=== PATIENT | female | born 1960 | race Caucasian/White ===

== ENCOUNTER → 2019-10-15 | Outpatient (CLI) | payer OTHER ==
[2019-10-15 09:50] LABS: BASOPHILS ABSOLUTE AUTO 0.05 K/mm3 (0.00-0.23); BASOPHILS PERCENT AUTO 1 % (0-2); EOSINOPHILS PERCENT AUTO 3 % (0-6); Hematocrit 39.2 % (33.0-51.0); Hemoglobin 12.5 g/dL (11.5-16.0); IMMATURE GRAN ABSOLUTE AUTO 0.02 K/mm3 (0.00-0.10); IMMATURE GRAN PERCENT AUTO 0 % (0-1); LYMPHOCYTES ABSOLUTE AUTO 2.76 K/mm3 (0.84-5.20); LYMPHOCYTES PERCENT AUTO 40 % (21-46); MONOCYTES ABSOLUTE AUTO 0.58 K/mm3 (0.16-1.47); MONOCYTES PERCENT AUTO 8 % (4-13); Mean Corpuscular HGB 26.8 pg (26.0-34.0); Mean Corpuscular HGB Conc 31.9 g/dL (31.5-36.5); Mean Corpuscular Volume 84 fL (80-100); NEUTROPHILS ABSOLUTE AUTO 3.34 K/mm3 (1.96-9.15); NEUTROPHILS PERCENT AUTO 48 % (41-73); Platelet Count 368 K/mm3 (150-400); RDW Coefficient Variation 15.2 % (11.7-14.2); Red Blood Cell Count 4.67 M/mm3 (3.80-5.20); White Blood Cell Count 6.95 K/mm3 (4.00-11.30)
[2019-10-15 10:52] LABS: Alanine Aminotransfer (ALT/SGP 42 U/L (12-78); Albumin, Blood 4.1 g/dL (3.4-5.0); Albumin/Globulin Ratio 1.1 (0.8-1.8); Alk Phos 84 U/L (40-126); Anion Gap 13 mmol/L (6-16); Aspartate Aminotrans (AST/SGOT 29 U/L (12-37); Bilirubin, Total 0.6 mg/dL (0.1-1.0); Blood Urea Nitrogen 14 mg/dL (8-24); Bun/Creatinine Ratio 16.5 (12.0-20.0); CO2, Blood 25 mmol/L (21-32); Chloride, Blood 104 mmol/L (98-108); Creatinine, Blood 0.85 mg/dL (0.40-1.00); Globulin, Blood 3.8 g/dL (2.2-4.0); Glomerular Filtration Rate >60 (60-); Glucose, Blood 112 mg/dL (70-99); Potassium, Blood 3.2 mmol/L (3.5-5.5); Sodium, Blood 142 mmol/L (136-145); Thyroid Stimulating Hormone 1.532 uIU/mL (0.360-4.800); Total Protein, Blood 7.9 g/dL (6.4-8.2)
[2019-10-15 11:58] LABS: Microalb/Creat Ratio UR, Rand 5.254 mg/g (0.000-30.000); Microalbumin, Random Urine 7.25 mg/L (0.000-20.000)
== END | disposition home or self-care (01) ==
LOC: LAB EV 08:35 → LAB SHORT 08:35
PROVIDERS: Family Medicine
DX: E03.9 Hypothyroidism, unspecified (principal); E78.49 Other hyperlipidemia; I10 Essential (primary) hypertension; E11.9 Type 2 diabetes mellitus without complications
CPT/HCPCS: 36415; 80053; 82043; 82570; 83036; 84443; 85025

== ENCOUNTER → 2020-09-02 | Outpatient (CLI) | payer BC | END | disposition home or self-care (01) | LOC: LAB EV 13:55 → LAB SHORT 13:55 | DX: B34.9 Viral infection, unspecified (principal); Z20.828 Contact with and (suspected) exposure to other viral communicable diseases | CPT/HCPCS: U0003 ==

== ENCOUNTER 2020-11-24 11:32 | Day surgery (SDC) | payer BC ==
[~2020-11-24] VITALS: Ht 172.7 cm; Wt 92.6 kg
[~2020-11-24 11:32] MED LIST: ALLEGRA ALLERG180 MG PO; ATOR20 PO; CENTRUM SILVER1 EAC2 PO; CITA20 PO; EUTHYROX50 MCG PO; Estrace Vagin42.5 GM TOP; Flonase 0.05% N16 GM; GINKGO60 MG PO; LOSARTAN-HCTZ1 EACH PO; METF500 PO; METO100ER PO; METO5A PO; PANT40 PO; POTCHL20ER PO
--- NOTE | 2020-11-24 12:06 | NUR ---
Ambulatory in Day Surgery. History, Chart, Medications and Allergies reviewed before start of procedure. Lungs clear T/O to Auscultation. Patient confirms NPO status and agrees with scheduled surgery.
--- NOTE | 2020-11-24 17:25 | NUR ---
PT TRANSFERRED TO ROOM VIA OWN BED, A/O X 4, PLEASANT/COOPERATIVE, DENIES PAIN, DENIES N/V. PER SPINAL ANESTHESIA, PT IS ABLE TO WIGGLE TOES, HAS MODERATE SENSATION, DERMATOMES AT L3. POST OP VS COMMENCED AND STABLE. OP SITE WITH BULKY GAUZE DRESSING AND TESSIE, C/D/I. CRYOTHERAPY, PATRICIA, PAS IN PLACE.
[2020-11-25 04:28] LABS: BASOPHILS ABSOLUTE AUTO 0.02 K/mm3 (0.00-0.23); BASOPHILS PERCENT AUTO 0 % (0-2); EOSINOPHILS PERCENT AUTO 0 % (0-6); Hematocrit 36.9 % (33.0-51.0); Hemoglobin 11.5 g/dL (11.5-16.0); IMMATURE GRAN ABSOLUTE AUTO 0.06 K/mm3 (0.00-0.10); IMMATURE GRAN PERCENT AUTO 0 % (0-1); LYMPHOCYTES ABSOLUTE AUTO 1.09 K/mm3 (0.84-5.20); LYMPHOCYTES PERCENT AUTO 8 % (21-46); MONOCYTES ABSOLUTE AUTO 0.45 K/mm3 (0.16-1.47); MONOCYTES PERCENT AUTO 3 % (4-13); Mean Corpuscular HGB 27.2 pg (26.0-34.0); Mean Corpuscular HGB Conc 31.2 g/dL (31.5-36.5); Mean Corpuscular Volume 87 fL (80-100); Mean Platelet Volume 10.7 fL (9.1-12.4); NEUTROPHILS ABSOLUTE AUTO 12.34 K/mm3 (1.96-9.15); NEUTROPHILS PERCENT AUTO 89 % (41-73); Platelet Count 355 K/mm3 (150-400); RDW Coefficient Variation 12.8 % (11.7-14.2); RDW Standard Deviation 40.5 fL (35.1-46.3); Red Blood Cell Count 4.23 M/mm3 (3.80-5.20); White Blood Cell Count 13.96 K/mm3 (4.00-11.30)
[2020-11-25 04:45] LABS: Anion Gap 6 mmol/L (6-16); Blood Urea Nitrogen 14 mg/dL (8-24); Bun/Creatinine Ratio 20.6 (12.0-20.0); CO2, Blood 29 mmol/L (21-32); Calcium, Blood 8.4 mg/dL (8.5-10.1); Chloride, Blood 103 mmol/L (98-108); Creatinine, Blood 0.68 mg/dL (0.40-1.00); Glomerular Filtration Rate >60 (60-); Glucose, Blood 151 mg/dL (70-99); Magnesium, Blood 1.8 mg/dL (1.6-2.4); Potassium, Blood 3.7 mmol/L (3.5-5.5); Sodium, Blood 138 mmol/L (136-145)
--- NOTE | 2020-11-25 07:17 | NUR ---
POD 1 S/P LEFT TKA. PT BSS T/O NIGHT. DRESSING CDI. CAP REFILL WNL, PT DENIED N/T. PAIN MGD W/1 OXYCODONE AND SCHEDULED TYLENOL/TORADOL. PT UP OOB W/FWW+SBA, THERESA WELL. PT THERESA REG PO, NO N/V, IS VOIDING URINE W/O DIFFICULTY. PLAN TO D/C HOME AFTER CLEARED BY PT.
[2020-11-25] MEDS ORDERED: SULTRIDS PO (10:26)
[2020-11-25] MEDS ORDERED: PROM25 PO (10:26)
[2020-11-25] MEDS ORDERED: OXYC5 PO (10:40)
--- NOTE | 2020-11-25 11:01 | NUR ---
DISCHARGE INSTRUCTIONS REVIEWED WITH PATIENT AND PT QUESTIONS ANSWERED. AQUACEL DRESSINGS X3 PROVIDED TO PATIENT. PT THERESA PO FOOD AND FLUIDS, DENIES NAUSEA, PAIN CONTROLLED, AMBULATING WITH STANDBY ASSIST. PT DISCHARGED TO HOME WITH HER BUNDLER SEASONAL GREENERY
== END 2020-11-25 10:55 | disposition home or self-care (01) ==
LOC: ORSCMMR 11:32 → ORD 14:00 → ORSCMMR 14:00 → ORD 15:00 → SURS 17:25 → ORSCMMR 11-25 10:55 → SURS 11-25 10:55
PROVIDERS: Orthopaedic Surgery
PROC: 8E0YXBZ Computer Assisted Procedure of Lower Extremity (ICD-10-PCS; principal; 2020-11-24 14:00)
PROC: 0SRD0J9 Replacement of Left Knee Joint with Synthetic Substitute, Cemented, Open Approach (ICD-10-PCS; principal; 2020-11-24 14:00)
DX: M17.12 Unilateral primary osteoarthritis, left knee (principal); I10 Essential (primary) hypertension; E78.5 Hyperlipidemia, unspecified; J45.909 Unspecified asthma, uncomplicated; K76.0 Fatty (change of) liver, not elsewhere classified; E11.9 Type 2 diabetes mellitus without complications; E03.9 Hypothyroidism, unspecified; M79.7 Fibromyalgia; Z79.899 Other long term (current) drug therapy; Z79.84 Long term (current) use of oral hypoglycemic drugs
CPT/HCPCS: 36415; 73560-LT; 80048; 82947; 83735; 85025; 88300; 97110; 97116; 97162; A9270; C1713; C1776; J0171; J0690; J0735; J1100; J1885; J2250; J2370; J2405; J2704; J2795; J3010; J3370; J7120

== ENCOUNTER → 2022-01-05 | Outpatient (CLI) | payer BC ==
[~2022-01-05] MED LIST changes: +FLUR15 PO; +GINSENG PO; +OMEP20ER PO; +OXYC5 PO; +PROM25 PO; +SULTRIDS PO; +TURMERIC ROOT5000 GM PO
[2022-01-06 16:09] LABS: HPV 16 Negative (Negative); HPV 18 Negative (Negative); HPV OTHER HR TYPES Negative (Negative)
== END | disposition home or self-care (01) ==
LOC: LAB 12:00 → LAB SHORT 12:00
PROVIDERS: Obstetrics & Gynecology
DX: Z01.419 Encounter for gynecological examination (general) (routine) without abnormal findings (principal)
CPT/HCPCS: 87624; G0123

== ENCOUNTER 2022-03-03 08:34 | Day surgery (SDC) | payer BC ==
[~2022-03-03] VITALS: Ht 172.7 cm; Wt 101.9 kg
--- NOTE | 2022-03-03 09:32 | NUR ---
PT ADMITTED TO [facility]. AGREES WITH PLANNED SURGERY. LUNG SOUNDS CLEAR. PT STATES SHE TOOLK 5 DAYS OF CHLOROHEXADINE SHOWER AND MUPIROCIN OINTMENT TO NARES.
--- NOTE | 2022-03-03 10:10 | NUR ---
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 PT HAS SINCE HAD 2 NEGATIVE NARES AND 2 NEGATIVE THROAT SWAW. ISOLOATION PROTOCOL NOT INITITATED.
--- NOTE | 2022-03-03 11:15 | NUR ---
03/03/22 Jessica5 Praveena Love PATIENT RECEIVED 1GM OF VANCO IN PREOP AT 0943 PRIOR TO ARRIVING IN THE OR.
--- NOTE | 2022-03-03 15:52 | NUR ---
PT ARRIVED TO THE FLOOR AT APPROX 1340. A/O X4. REPORTS NO PAIN AT THIS TIME, ABLE TO WIGGLE TOES AND HAS 3+ CAP REFIL IN R TOES. VITAL SIGNS TAKEN AT THAT TIME. ORIENTED TO ROOM AND CALL LIGHT. PLEASANT AND COOPERATIVE. FAMILY MEMBERS VISITING. WILL CONTINUE TO MONITOR.
--- NOTE | 2022-03-03 18:10 | NUR ---
SHIFT SUMMARY A/O X4. POD0 R TKA- TESSIE WRAP C/D/I, POLAR PACK AND SCDS ON. SENSATION TO R LEG RETURNING, ABLE TO WIGGLE TOES AND FEELS PAIN. TOLERATING PO PAIN MEDICATIONS. TOLERATING PO INTAKE WITH NO N/V REPORTED. NO POST OP VOID AT THIS TIME, WILL BLADDER SCAN APPROX 6 HOURS POST STRAIGHT CATH DONE IN OR. PT REPORTS NO SENSATION TO PEE AT THIS TIME. PT WILL PLAN TO GET OUT OF BED WHEN SENSATION FULLY RETURNS TO R LEG. WILL CONTINUE TO MONITOR AND REPORT TO ONCOMING RN.
--- NOTE | 2022-03-04 03:21 | NUR ---
SUMMARY PATIENT AMBULATED WELL WITHOUT ANY COMPLICATIONS. PTS PAIN MANAGED WELL WITH PO MEDICATION AND POLAR PACK. PT SLEPT ON AND OFF T/O SHIFT. PT CURRENTLY RESTING COMFORTABLY. CALL LIGHT IN REACH.
[2022-03-04 04:27] LABS: BASOPHILS ABSOLUTE AUTO 0.03 K/mm3 (0.00-0.23); BASOPHILS PERCENT AUTO 0 % (0-2); EOSINOPHILS PERCENT AUTO 0 % (0-6); Hematocrit 30.5 % (33.0-51.0); Hemoglobin 9.6 g/dL (11.5-16.0); IMMATURE GRAN PERCENT AUTO 1 % (0-1); LYMPHOCYTES ABSOLUTE AUTO 1.26 K/mm3 (0.84-5.20); LYMPHOCYTES PERCENT AUTO 8 % (21-46); MONOCYTES ABSOLUTE AUTO 1.05 K/mm3 (0.16-1.47); MONOCYTES PERCENT AUTO 6 % (4-13); Mean Corpuscular HGB 26.5 pg (26.0-34.0); Mean Corpuscular HGB Conc 31.5 g/dL (31.5-36.5); Mean Corpuscular Volume 84 fL (80-100); NEUTROPHILS ABSOLUTE AUTO 14.12 K/mm3 (1.96-9.15); NEUTROPHILS PERCENT AUTO 85 % (41-73); Platelet Count 303 K/mm3 (150-400); RDW Coefficient Variation 14.6 % (11.7-14.2); RDW Standard Deviation 44.8 fL (35.1-46.3); Red Blood Cell Count 3.62 M/mm3 (3.80-5.20); White Blood Cell Count 16.56 K/mm3 (4.00-11.30)
[2022-03-04 05:01] LABS: Anion Gap 7 mmol/L (6-16); Blood Urea Nitrogen 15 mg/dL (8-24); Bun/Creatinine Ratio 19.7 (12.0-20.0); CO2, Blood 29 mmol/L (21-32); Calcium, Blood 8.5 mg/dL (8.5-10.1); Chloride, Blood 98 mmol/L (98-108); Creatinine, Blood 0.76 mg/dL (0.40-1.00); Glomerular Filtration Rate >60 (60-); Glucose, Blood 126 mg/dL (70-99); Magnesium, Blood 1.5 mg/dL (1.6-2.4); Sodium, Blood 134 mmol/L (136-145)
--- NOTE | 2022-03-04 08:44 | NUR ---
MORNING MEDICATIONS IN ROOM COMPUTOR NOT WORKING DURING MEDICATION PASS, EACH MEDICATINO WAS VERIFIED ONE AT A TIME FOR DOSE/ROUTE/TIME. EACH MEDICATION WAS DOCUMENTED NOTING REASON FOR NOT BEING SCANNED.
[2022-03-04] MEDS ORDERED: OXAYDO5 M1 PO (10:25)
[2022-03-04] MEDS ORDERED: PROM25 PO (10:26)
[2022-03-04] MEDS ORDERED: SULTRIDS PO (10:26)
--- NOTE | 2022-03-04 11:17 | NUR ---
DISCHARGE SUMMARY PATIENT WORKED WITH PT TODAY. BOTH PT AND REKHA CLEARED PATIENT FOR DISCHARGE. PT'S PAIN CONTROLLED WITH NORCO ORDERED. ALL OTHER MEDICATIONS ADMINISTERED ORDERED. PT TRANSFERRED TO VEHICLE VIA WHEELCHAIR. PT ASSISTED INTO VEHICLE AND LEFT POV W/O INCIDENT.
== END 2022-03-04 11:10 | disposition home or self-care (01) ==
LOC: ORSCMMR 08:34 → ORD 10:45 → SURS 13:40 → ORSCMMR 03-04 11:10
PROVIDERS: Orthopaedic Surgery
PROC: 0SRC0J9 Replacement of Right Knee Joint with Synthetic Substitute, Cemented, Open Approach (ICD-10-PCS; principal; 2022-03-03 10:45)
PROC: 8E0YXBZ Computer Assisted Procedure of Lower Extremity (ICD-10-PCS; principal; 2022-03-03 10:45)
DX: M17.11 Unilateral primary osteoarthritis, right knee (principal); Z96.652 Presence of left artificial knee joint; I10 Essential (primary) hypertension; J45.909 Unspecified asthma, uncomplicated; E11.9 Type 2 diabetes mellitus without complications; E03.9 Hypothyroidism, unspecified; F41.8 Other specified anxiety disorders; M79.7 Fibromyalgia; E66.9 Obesity, unspecified; Z68.34 Body mass index [BMI] 34.0-34.9, adult; Z79.84 Long term (current) use of oral hypoglycemic drugs; Z79.899 Other long term (current) drug therapy
CPT/HCPCS: 36415; 73560-RT; 80048; 82947; 83735; 85025; 97110; 97162; 97530; A9270; C1713; C1776; J0171; J0690; J0735; J1100; J1885; J2250; J2370; J2405; J2704; J2765; J2795; J3010; J3370; J3475; J7050; J7060; J7120

== ENCOUNTER 2023-12-31 06:15 | Day surgery (SDC) | payer BC ==
[~2023-12-31] VITALS: Ht 172.7 cm; Wt 95.7 kg
[2023-12-31] VITALS (11 sets, daily range): BP systolic 124–160; BP diastolic 68–87
[~2023-12-31 06:15] MED LIST changes: +OXAYDO5 M1 PO
[2023-12-31] MEDS ORDERED: Lactated Ringer's 1,000 ML IV SCH (06:20)
[2023-12-31] MEDS ORDERED: Scopolamine Hydrobromide Patch TOP ONE (07:10)
[2023-12-31] MEDS ORDERED: Bupivacaine 0.5% HCl 5 MG/ML 30MLVIAL ONE (07:17)
[2023-12-31] MEDS ORDERED: Rocuronium Bromide 10 MG/ML 5ML Injection IV ONE (07:22)
[2023-12-31] MEDS ORDERED: propofoL 40 ML IV ONE (07:23)
[2023-12-31] MEDS ORDERED: FentaNYL Citrate 50 MCG/ML 2 ML Injection ONE (07:23)
[2023-12-31] MEDS ORDERED: CeFAZolin Sodium 2,000 MG in NS 50 ML IV PRN (07:30)
[2023-12-31] MEDS ORDERED: CeFAZolin Sodium 2,000 MG VIAL ONE (07:33)
[2023-12-31] MEDS ORDERED: HYDROmorphone HCl/Pf 1MG SYR ONE (08:13)
[2023-12-31] MEDS ORDERED: Dexamethasone Sod Phos 10 MG/ML 1ML VIAL ONE (08:13)
[2023-12-31] MEDS ORDERED: Metoclopramide HCl 5MG / ML 2ML Vial ONE (08:13)
[2023-12-31] MEDS ORDERED: Ondansetron HCl 2 MG / ML 2ML Vial ONE (08:13)
[2023-12-31] MEDS ORDERED: ePHEDrine Sulfate 50 MG/ML 1ML Injection ONE (09:53)
[2023-12-31] MEDS ORDERED: Ketorolac Tromethamine 30mg Vial ONE (10:17)
[2023-12-31] MEDS ORDERED: Sugammadex Sodium 200 MG/2ML SDV (100 MG/ML) ONE (10:19)
--- NOTE | 2023-12-31 10:23 | NUR ---
Patient in sds at 0630. Ambulatory in Day Surgery. Surgical site prepped with 2% Chlorhexidine cloth wipe. History, Chart, Medications and Allergies reviewed before start of procedure. Patient confirms NPO status and agrees with scheduled surgery. Pre-Op teaching done. Pt verbalizes understanding.
[2023-12-31] MEDS ORDERED: Ibuprofen 400 MG Tab PO PRN (10:45)
[2023-12-31] MEDS ORDERED: OxyCODONE HCL 5 MG TAB PO PRN (10:45)
[2023-12-31] MEDS ORDERED: DiphenhydrAMINE HCL 25 MG Cap PO PRN (10:45)
[2023-12-31] MEDS ORDERED: FLU VACC QS2023-24(6MOS UP)/PF 60 MCG/0.5 ML SYRINGE IM SCH (10:45)
[2023-12-31] MEDS ORDERED: FentaNYL Citrate 50 MCG/ML 2 ML Injection IV PRN (10:45)
[2023-12-31] MEDS ORDERED: Ondansetron HCl 2 MG / ML 2ML Vial IV PRN (10:45)
[2023-12-31] MEDS ORDERED: Metoclopramide HCl 10 MG Tab PO PRN (10:45)
[2023-12-31] MEDS ORDERED: Simethicone 80 MG Chew PO PRN (10:50)
--- NOTE | 2023-12-31 11:27 | NUR ---
PATIENT TO ROOM 226 @1100 VITALS STABLE, ON 2 LNC SATS 100%. DENIES N/V PAIN AT THIS TIME. LAP SITES X4 COVERED WITH BANDAIDS, WNL. ABLE TO TOLERATE SOME SIPS AND JELLO. IVF TKO. ORIENTED TO ROOM AND CALL LIGHT. CALL LIGHT IN REACH. SOFIA PAD IN PLACE. PAS JOSE NORTON
[2023-12-31] MEDS ORDERED: Ketorolac Tromethamine 30mg Vial IV SCH (12:00)
[2023-12-31] MEDS ORDERED: Acetaminophen 500 MG Tab PO SCH (16:00)
--- NOTE | 2023-12-31 17:26 | NUR ---
DISCHARGE PATIENT TOLERATING PO INTAKE, VOIDS SPONTANEOUSLY. DENIES N/V. DENIES NEED FOR PAIN MEDICATION. LAP SITES C/D/I. LUNG SOUNDS CLEAR BILAT. IVS TAKEN OUT WITH NO COMPLICATIONS. PATIENT DISCHARGE INSTRUCTIONS SIGNED AND PACKED IN PATIENT BELONGINGS. PRESCRIPTIONS FAXXED TO [place]. LEAVES VIA PRIVATE CAR.
== END 2023-12-31 16:59 | disposition home or self-care (01) ==
LOC: ORSCMMR 06:15 → ORD 07:30 → ORSCMMR 07:30 → SURS 10:55 → ORSCMMR 16:59
PROVIDERS: Obstetrics & Gynecology
PROC: 0UT7FZZ Resection of Bilateral Fallopian Tubes, Via Natural or Artificial Opening With Percutaneous Endoscopic Assistance (ICD-10-PCS; principal; 2023-12-31 07:30)
PROC: 0UT2FZZ Resection of Bilateral Ovaries, Via Natural or Artificial Opening With Percutaneous Endoscopic Assistance (ICD-10-PCS; principal; 2023-12-31 07:30)
PROC: 0UT9FZZ Resection of Uterus, Via Natural or Artificial Opening With Percutaneous Endoscopic Assistance (ICD-10-PCS; principal; 2023-12-31 07:30)
DX: D27.0 Benign neoplasm of right ovary (principal); N80.03 Adenomyosis of the uterus; N83.8 Other noninflammatory disorders of ovary, fallopian tube and broad ligament; I10 Essential (primary) hypertension; E11.9 Type 2 diabetes mellitus without complications; E03.9 Hypothyroidism, unspecified; Z79.4 Long term (current) use of insulin; Z79.899 Other long term (current) drug therapy
CPT/HCPCS: 82435; 82947; 84132; 84295; 86850; 86900; 86901; 88108; 88307; A9270; J0690; J1100; J1170; J1885; J2405; J2704; J2765; J3010; J7120

== ENCOUNTER → 2024-12-31 | Outpatient (CLI) | payer BC ==
[2024-12-31 07:51] LABS: BASOPHILS ABSOLUTE AUTO 0.01 K/mm3 (0.00-0.23); BASOPHILS PERCENT AUTO 0 % (0-2); EOSINOPHILS ABSOLUTE AUTO 0.52 K/mm3 (0.00-0.68); EOSINOPHILS PERCENT AUTO 6 % (0-6); Hemoglobin 12.5 g/dL (11.5-16.0); IMMATURE GRAN ABSOLUTE AUTO 0.04 K/mm3 (0.00-0.10); IMMATURE GRAN PERCENT AUTO 1 % (0-1); LYMPHOCYTES ABSOLUTE AUTO 2.09 K/mm3 (0.84-5.20); LYMPHOCYTES PERCENT AUTO 24 % (21-46); MONOCYTES ABSOLUTE AUTO 0.54 K/mm3 (0.16-1.47); MONOCYTES PERCENT AUTO 6 % (4-13); Mean Corpuscular HGB Conc 32.1 g/dL (31.5-36.5); Mean Corpuscular Volume 81 fL (80-100); Mean Platelet Volume 10.5 fL (9.1-12.4); NEUTROPHILS PERCENT AUTO 63 % (41-73); Platelet Count 407 K/mm3 (150-400); RDW Coefficient Variation 15.9 % (11.7-14.2); RDW Standard Deviation 46.1 fL (35.1-46.3)
[2024-12-31 08:14] LABS: Albumin, Blood 3.9 g/dL (3.4-5.0); Bilirubin, Total 0.7 mg/dL (0.1-1.0); Bun/Creatinine Ratio 19.5 (12.0-20.0); Creatinine, Blood 0.77 mg/dL (0.40-1.00); Potassium, Blood 3.4 mmol/L (3.5-5.5); Total Protein, Blood 7.9 g/dL (6.4-8.2)
== END ==
LOC: LAB 07:47 → LAB SHORT 07:47
PROVIDERS: Physician Assistant
DX: R10.9 Unspecified abdominal pain (principal)
CPT/HCPCS: 80053; 83690; 85025